=== PATIENT | female | born 1980 | race Caucasian/White ===

== ENCOUNTER 2016-06-05 20:25 | Observation (INO) | payer BC ==
[~2016-06-05] VITALS: Ht 152.4 cm; Wt 144.6 kg
[2016-06-05] MEDS ORDERED: OPTIRAY 350 100 ML VIAL HMH IV ONE (20:26)
[2016-06-05] MEDS ORDERED: ASPIRIN 81 MG CHEW TAB ONE (20:51)
[2016-06-05] MEDS ORDERED: SODIUM CHLORIDE 0.9% 1,000 ML ONE (20:52)
[2016-06-05] MEDS ORDERED: ONDANSETRON 4 MG VIAL ONE (21:16)
[2016-06-05] MEDS ORDERED: ACETAMINOPHEN 325 MG TAB ONE (21:17)
[2016-06-06] VITALS (7 sets, daily range): BP systolic 110–130; RESP 16–20; TEMP 97.9–99.7; Ht 152.4 cm; Wt 144.6 kg
[2016-06-06] MEDS ORDERED: SODIUM CHLORIDE 0.9% 100 ML IV ONE (00:43)
[2016-06-06] MEDS ORDERED: SODIUM CHLORIDE 0.9% 1,000 ML ONE (00:43)
[2016-06-06] MEDS ORDERED: CEFTRIAXONE 1 GM VIAL ONE (00:43)
[2016-06-06] MEDS ORDERED: MAG HYDROX 30 ML UDC PO PRN (02:10)
[2016-06-06] MEDS ORDERED: ALU/MAG/SIM 30 ML UDC PO PRN (02:10)
[2016-06-06] MEDS ORDERED: BISACODYL 10 MG SUPP RECTAL PRN (02:10)
[2016-06-06] MEDS ORDERED: ACETAMINOPHEN 325 MG TAB PO PRN (02:10)
[2016-06-06] MEDS ORDERED: MORPHINE 2 MG/ML SYR IV PRN (02:10)
[2016-06-06] MEDS ORDERED: SALINE FLUSH 10 ML FLUSH PRN (02:10)
[2016-06-06] MEDS ORDERED: BISACODYL EC 5 MG TAB PO PRN (02:10)
[2016-06-06] MEDS ORDERED: ONDANSETRON 4 MG VIAL IV PRN (02:10)
[2016-06-06] MEDS ORDERED: SODIUM CHLORIDE 0.9% FLUSH BAG 500 ML IV SCH (06:00)
[2016-06-06] MEDS ORDERED: SALINE FLUSH 10 ML FLUSH SCH (08:00)
[2016-06-06] MEDS ORDERED: CEFTRIAXONE 1 GM in SODIUM CHLORIDE 0.9% 50 ML IV SCH (09:00)
== END 2016-06-06 13:36 | disposition home or self-care (01) ==
LOC: ENRESERVDT → ENRESERV → ENRESERVTM → ER 20:25 → EMR 20:26 → UNDOADMOB 06-06 00:50 → 3NT 06-06 01:51
PROVIDERS: ADMIT Internal Medicine; ATTEND Internal Medicine
DX: R65.10 Systemic inflammatory response syndrome (SIRS) of non-infectious origin without acute organ dysfunction (principal); R50.9 Fever, unspecified; R00.0 Tachycardia, unspecified; E78.1 Pure hyperglyceridemia; E78.00 Pure hypercholesterolemia, unspecified; E11.9 Type 2 diabetes mellitus without complications; I10 Essential (primary) hypertension
CPT/HCPCS: 36415; 71010; 74177; 80053; 81001; 83605; 83690; 85025; 85610; 85730; 87040; 87088; 87804; 87880; 93005; 94799; 96361; 96365; 96375; 99217; 99219